=== PATIENT | male | born 1955 | race Caucasian/White ===

== ENCOUNTER → 2017-03-02 | Outpatient (CLI) | payer OTHER ==
[~2017-03-02] MED LIST: CALC-323 PO; CEPH500C PO; HYDR-5688 PO; LISI10TA PO; MULT-506 PO; OMEG10007 PO; PROM1SUP17 PO; PSYL55.43 PO
[2017-03-02 17:44] LABS: ALT/SGPT 26 U/L (12-78); AST/SGOT 21 U/L (15-37); BLOOD UREA NITROGEN 10 mg/dl (7-18); BUN/CREATININE RATIO 10.3 (10-20); CALCIUM 8.8 mg/dl (8.5-10.1); CARBON DIOXIDE 30 mmol/L (21-32); CHLORIDE 106 mmol/L (98-107); CHOLESTEROL 198 mg/dl (0-200); GLUCOSE 86 mg/dl (70-99); POTASSIUM 4.2 mmol/L (3.5-5.1); SODIUM 142 mmol/L (136-145)
[2017-03-02 17:48] LABS: ALB/GLOB RATIO 1.4 (0.9-2); ALKALINE PHOSPHATASE 59 U/L (45-117); HDL CHOLESTEROL 49 mg/dl; LDL CHOLESTEROL CALCULATED 125 mg/dl; TRIGLYCERIDES 122 mg/dl (0-150); VERY LOW DENSITY LIPOPROT CALC 24 mg/dl
== END | disposition home or self-care (01) ==
LOC: C.LABBFT 11:10
PROVIDERS: ATTEND Internal Medicine
DX: N40.0 Benign prostatic hyperplasia without lower urinary tract symptoms (principal)

== ENCOUNTER 2017-03-14 19:21 | Inpatient (IN) | payer OTHER ==
[~2017-03-14] VITALS: Ht 170.2 cm; Wt 72.8 kg
[~2017-03-14 19:21] MED LIST changes: -CALC-323 PO; -CEPH500C PO; -HYDR-5688 PO; -PROM1SUP17 PO
[2017-03-14] MEDS ORDERED: NURSING VERBAL MED ORDER ONE ×2 (19:30→22:30)
[2017-03-14] MEDS ORDERED: D5W AND 1/2NSS 1,000 ML IV SCH (19:38)
[2017-03-14] MEDS ORDERED: KETOROLAC TROMETHAMINE 30 MG/ML VIAL IV. PRN (19:45)
[2017-03-14] MEDS ORDERED: ACETAMINOPHEN/CODEINE 300/30MG TAB PO PRN (19:45)
[2017-03-14] MEDS ORDERED: ONDANSETRON INJ 2 MG/ML 2 ML VIAL IV PRN (19:45)
[2017-03-14] MEDS ORDERED: OXYCODONE/ACETAMINOPHEN 5-325 TAB PO PRN (19:45)
[2017-03-14] MEDS ORDERED: HYDROmorphone INJ 1 MG/ML SYR IV PRN (19:45)
[2017-03-14] MEDS: D5W AND 1/2NSS 1,000 ML IV SCH (19:52)
[2017-03-14] MEDS ORDERED: KETOROLAC TROMETHAMINE 30 MG/ML VIAL ONE (20:05)
--- NOTE | 2017-03-14 20:05 | DIAGNOSTIC IMAGING REPORT ---
RIGHT ELBOW 2 VIEWS CLINICAL HISTORY: Right elbow injury. COMPARISON: None FINDINGS: Fine detail is diminished due to overlying material. There is a displaced comminuted olecranon fracture with intra-articular extension. Fracture is displaced 1.3 cm. Soft tissue gas is suspected. This suggests an open fracture. IMPRESSION: Comminuted, moderately displaced olecranon fracture with intra-articular extension. Soft tissue gas raises the possibility of an open fracture. Electronically signed by: James Oliveira M.D. 03/14/2017 8:04 PM Dictated Date/Time: 03/14/2017 8:01 PM
[2017-03-14] MEDS ORDERED: CALC-323 PO (20:08)
--- NOTE | 2017-03-14 20:33 | HISTORY & PHYSICAL EXAMINATION ---
DATE OF ADMISSION: 03/14/2017 PREOPERATIVE HISTORY AND PHYSICAL CHIEF COMPLAINT: Right elbow pain. HISTORY OF PRESENT ILLNESS: Robert is a delightful gentleman. He is 61 years of age, fell on a ladder at his home environment earlier this afternoon, early evening, suffered acute injury to his right elbow. He was transported to the [facility] area where he was evaluated, treated and splinted. I was called from the [facility], they were stating that they did not have an orthopedic surgeon that could handle the case or did not have the implants. They wondered if I would accept the patient in transfer and I was glad to be able to accommodate the patient's needs. The ER physician did say he has a small laceration over left elbow. I looked at this, it is small and I think it is punctate, it might be a little more of an abrasion but there is some breakage of skin. PAST MEDICAL HISTORY: Hyperlipidemia, hypertension. PAST SURGICAL HISTORY: Tonsils. FAMILY HISTORY: Hypertension. SOCIAL HISTORY: Nonsmoker, non-alcohol user. He is employed. He is . MEDICATIONS: Include lisinopril, fish oil, and multivitamin. He takes pain pills every now and then for pain. ALLERGIES: None known to medication. REVIEW OF SYSTEMS: He denies any head trauma, no blurred vision, double vision, tinnitus, vertigo. Denies any chest trauma, shortness of breath, chest pain, no nausea, vomiting. No urgency, frequency, dysuria. He admits to only musculoskeletal complaint of his right elbow and right groin. OBJECTIVE: GENERAL: He is alert, oriented, pleasant gentleman. VITAL SIGNS: Blood pressure 120/80, pulse of 80, respiration rate 16, afebrile. HEENT: Normal. Pupils react to light and no head trauma, no eye injury. Pharynx midline. NECK: Supple. CARDIAC: Normal S1, S2, no S3. LUNGS: Clear to auscultation. No rales, rhonchi or wheezing. ABDOMEN: Soft, nontender. Does have some right inguinal pain near the adductor muscle on the right side. EXTREMITIES: His right upper extremity was bandaged and supported, I took this down to evaluate his wound. IMAGING DATA: X-rays obtained demonstrating a slightly comminuted transverse fracture proximal right olecranon. ASSESSMENT: Right olecranon fracture, possible grade 1 open. DISPOSITION: We cleaned up his wound here today with some saline and some peroxide, we redressed his wound. We are going to make patient n.p.o. after midnight. We will get him repaired tomorrow. I explained to him that he will be an add-on case and hopefully get to him around 2:00 or 3:00 in the afternoon of Tuesday and then will have him discharged on Tuesday. He is alert, oriented and we answered all questions. He is prepared for surgical intervention. NADINE
[2017-03-14 20:40] VITALS: Ht 170.2 cm; Wt 72.8 kg
[2017-03-14 21:15] VITALS: BP 113/62; PULSE 68; TEMP 36.6; O2SAT 94
[2017-03-14 21:35] LABS: HEMATOCRIT 42.1 % (42-52); MEAN CELL VOLUME 82.4 fL (80-100); MEAN CORPUSCULAR HEMOGLOBIN 28.4 pg (25-34); MEAN CORPUSCULAR HGB CONC 34.4 g/dl (32-36); PLATELET COUNT 160 K/uL (130-400); RED BLOOD COUNT 5.11 M/uL (4.7-6.1); WHITE BLOOD COUNT 13.49 K/uL (4.8-10.8)
[2017-03-14 21:52] LABS: CREATININE 0.93 mg/dl (0.60-1.40)
[2017-03-14] MEDS ORDERED: CEFAZOLIN IV 1,000 MG in DEXTROSE 5% 50ML 50 ML IV STA (22:31)
[2017-03-14 23:40] VITALS: BP 111/64; PULSE 72; TEMP 36.8; O2SAT 94
[2017-03-15] VITALS (8 sets, daily range): BP systolic 123–143; BP diastolic 77–85; PULSE 65–83; TEMP 36.5–37.4; O2SAT 92–95
[2017-03-15] MEDS: CEFAZOLIN IV 1,000 MG in DEXTROSE 5% 50ML 50 ML IV SCH ×3 (06:18→21:24)
[2017-03-15] MEDS: MULTIVITAMIN TAB PO SCH (08:28)
[2017-03-15] MEDS: D5W AND 1/2NSS 1,000 ML IV SCH (08:28)
[2017-03-15] MEDS: LISINOPRIL 10 MG TAB PO SCH (08:30)
[2017-03-15] MEDS ORDERED: MIDAZOLAM HCL 1 MG/ML 2ML VIAL ONE (14:55)
[2017-03-15] MEDS ORDERED: FENTANYL CITRATE INJ 50 MCG/1 ML 2 ML VIAL ONE (14:56)
[2017-03-15] MEDS ORDERED: BACITRACIN 50000 UNIT VIAL ONE (15:19)
[2017-03-15] MEDS ORDERED: FENTANYL CITRATE INJ 50 MCG/1 ML 2 ML VIAL IV PRN (15:45)
[2017-03-15] MEDS ORDERED: ONDANSETRON INJ 2 MG/ML 2 ML VIAL IV PRN ×2 (15:45→18:30)
[2017-03-15] MEDS ORDERED: HYDROmorphone INJ 1 MG/ML SYR IV PRN (15:45)
[2017-03-15] MEDS ORDERED: EpHEDrine SULFATE INJ 50 MG/ML AMP IV PRN (15:45)
[2017-03-15] MEDS ORDERED: ATROPINE SULFATE 0.1 MG/ML 5ML SYR IV PRN (15:45)
--- NOTE | 2017-03-15 15:48 | History & Physical Bridge Note ---
H&P Re-Evaluation Bridge Note: I have examined the patient, reviewed the History & Physical and in the interval since the performance of the History & Physical I have noted the following changes of clinical significance: No changes noted
[2017-03-15] MEDS ORDERED: NEOSTIGMINE METHYLSULFATE 5 MG/5 ML SYR ONE (16:28)
[2017-03-15] MEDS ORDERED: GLYCOPYRROLATE INJ 0.2 MG/ML VIAL ONE (16:28)
[2017-03-15] MEDS ORDERED: PROPOFOL IV EMULSION 10 MG/ML 20 ML VIAL IV ONE (16:28)
[2017-03-15] MEDS ORDERED: DEXAMETHASONE SOD INJ 4 MG/ML VIAL ONE (16:28)
[2017-03-15] MEDS ORDERED: ROCURONIUM BROMIDE 10 MG/ML 5 ML VIAL ONE (16:28)
[2017-03-15] MEDS ORDERED: LIDOCAINE HCL 2% 2 ML VIAL (20MG/ML) ONE (16:28)
[2017-03-15] MEDS ORDERED: LARYING-O-JET KIT (LTA) EXT ONE ×2 (16:28)
[2017-03-15] MEDS ORDERED: ONDANSETRON INJ 2 MG/ML 2 ML VIAL ONE (16:28)
[2017-03-15] MEDS ORDERED: HYDROmorphone INJ 2 MG/ML SYR/VIAL ONE (16:29)
--- NOTE | 2017-03-15 18:17 | DIAGNOSTIC IMAGING REPORT ---
INTRAOPERATIVE RADIOGRAPHS CLINICAL HISTORY: Open reduction and internal fixation of the right elbow. Fluoroscopy time: 8 seconds. FINDINGS: 2 spot fluoroscopic views of the right elbow are correlated with pelvic radiograph dated 03/14/2017. There has been buttress plate fixation of the proximal ulna. At least 5 cortical lag screws transfix the buttress plate, with the 2 longest screws transfixing the largest fracture fragments. There has been faith of near-anatomic alignment. Overlying soft tissue edema is noted. IMPRESSION: Intraoperative images from open reduction and internal fixation of the right elbow as above. See operative report for detailed findings. Electronically signed by: Rubio Urban M.D. 03/15/2017 6:16 PM Dictated Date/Time: 03/15/2017 6:15 PM
--- NOTE | 2017-03-15 18:17 | DIAGNOSTIC IMAGING REPORT ---
INTRAOPERATIVE RADIOGRAPHS CLINICAL HISTORY: Open reduction and internal fixation of the right elbow. Fluoroscopy time: 8 seconds. FINDINGS: 2 spot fluoroscopic views of the right elbow are correlated with pelvic radiograph dated 03/14/2017. There has been buttress plate fixation of the proximal ulna. At least 5 cortical lag screws transfix the buttress plate, with the 2 longest screws transfixing the largest fracture fragments. There has been nondenominational of near-anatomic alignment. Overlying soft tissue edema is noted. IMPRESSION: Intraoperative images from open reduction and internal fixation of the right elbow as above. See operative report for detailed findings. Electronically signed by: Rubio Urban M.D. 03/15/2017 6:16 PM Dictated Date/Time: 03/15/2017 6:15 PM
[2017-03-15] MEDS ORDERED: MAGNESIUM HYDROXIDE SUSP 30 ML UDC PO PRN (18:30)
--- NOTE | 2017-03-15 18:32 | [facility] Post Operative Brief Note ---
Immediate Operative Summary Operative Date March 15, 2017. Pre-Operative Diagnosis Right olecranon fracture, possible grade 1 open Post-Operative Diagnosis Right olecranon fracture, possible grade 1 open Procedure(s) Performed Right Open Reduction Internal Fixation Elbow Surgeon Dr. Fountain Biostatistics Professor Surgeon(s) Mark Cedeno PA-C Estimated Blood Loss 30ml Findings comminuted elbow fracture Specimens None per surgeon Complication(s) None Disposition Recovery Room / PACU
--- NOTE | 2017-03-15 18:55 | Anesthesiology Progress Note ---
Anesthesia Post Op Note Date & Time March 15, 2017 at 18:56 Vital Signs Pain Intensity: 1.0 Vital Signs Past 12 Hours Date Time Temp Pulse Resp B/P Pulse Ox O2 Delivery O2 Flow Rate FiO2 03/15/17 15:37 37.2 73 18 126/84 94 Room Air 03/15/17 15:11 37.4 65 18 124/82 95 Room Air 03/15/17 07:55 Room Air 03/15/17 07:54 94 Room Air 03/15/17 07:51 37.0 70 14 128/78 94 Room Air Notes Mental Status: alert / awake / arousable, participated in evaluation Pt Amnestic to Procedure: Yes Nausea / Vomiting: adequately controlled Pain: adequately controlled Airway Patency, RR, SpO2: stable & adequate BP & HR: stable & adequate Hydration State: stable & adequate Anesthetic Complications: no major complications apparent
[2017-03-15] MEDS: SODIUM CHLORIDE 0.9% 1000ML 1,000 ML IV SCH (20:20)
[2017-03-15] MEDS: DOCUSATE SODIUM 100 MG CAP PO SCH (21:24)
--- NOTE | 2017-03-15 23:01 | Medical Consult ---
Consultation Date of Consultation: March 15, 2017. Attending Physician: Rhett Fountain DO Reason for Consultation: medical mx History of Present Illness This is a 61 yo m POD0 s/p right olecranon fracture repair via ORIF. We were consulted for medical mx. The patient had fallen from a tree onto his right side on 03/14/17. he was seen in [facility] and an olecranon fracture was noted and decision was made to transfer him to this hospital for further mx. An ORIF was done today and patient states that he is feeling "a bit groggy" post operatively but otherwise well. He notes he only takes medications to manage his blood pressure which has been well controlled on his current regimen. he has no history of GA/ stroke and is a non smoker. His father had a stroke at an older age. Past Medical/Surgical History s/p ORIF HTN Family History FH: hypertension Social History Smoking Status: Never Smoker Smokeless Tobacco Use: No Alcohol Use: none Drug Use: none Marital Status: Occupation Status: employed Allergies Coded Allergies: No Known Allergies (Unverified , 06/18/16) Current Inpatient Medications Current Inpatient Medications Medications (Trade) Dose Ordered Sig/Dimas Route Start Time Stop Time Status Last Admin Dose Admin Acetaminophen/ Codeine Phosphate (Tylenol w/ Codeine #3 Tab) `1-2 TABS FOR PAIN `1 TAB... Q4 PRN PO 03/14/17 19:45 04/13/17 19:44 Diphenhydramine HCl (Benadryl Cap) 25 mg Q8 PRN PO 03/14/17 19:45 04/13/17 19:44 Ondansetron HCl (Zofran Inj) 4 mg Q6H PRN IV 03/14/17 19:45 04/13/17 19:44 03/15/17 22:38 4 MG Hydromorphone HCl (Dilaudid Inj) 1 mg Q3HWA PRN IV 03/14/17 19:45 03/28/17 19:44 03/14/17 20:08 1 MG Lisinopril (Zestril Tab) 10 mg DAILY PO 03/15/17 09:00 04/14/17 08:59 Multivitamins 1 tab 1 tab DAILY PO 03/15/17 09:00 04/14/17 08:59 Cefazolin Sodium/ Dextrose (Ancef Iv/D5 50ml) 55 ml @ 100 mls/hr Q8 IV 03/15/17 06:00 03/16/17 05:59 03/15/17 21:24 100 MLS/HR Oxycodone/ Acetaminophen (Percocet 5-325mg Tab) `1-2 TABS FOR PAIN `1 TAB... Q4H PRN PO 03/15/17 18:30 03/29/17 18:29 Ketorolac Tromethamine (Toradol Inj) 30 mg Q6 PRN IV. 03/15/17 18:30 03/18/17 18:29 Docusate Sodium (coLACE CAP) 100 mg BID PO 03/15/17 21:00 04/14/17 20:59 03/15/17 21:24 100 MG Magnesium Hydroxide 30 ml 30 ml Q6H PRN PO 03/15/17 18:30 04/14/17 18:29 Sodium Chloride (Nss 1000ml) 1,000 ml @ 80 mls/hr [id number] IV 03/15/17 18:29 04/14/17 18:28 03/15/17 20:20 80 MLS/HR Calcium/Vitamin D (Caltrate Plus Tab) 1 tab DAILY PO 03/16/17 09:00 04/15/17 08:59 Review of Systems Constitutional: No fever Eyes: No worsening of vision ENT: No hearing loss Respiratory: No cough, No dyspnea at rest, No dyspnea on exertion, No shortness of breath, No sputum, No wheezing Cardiovascular: No chest pain Abdomen: + nausea, No constipation, No diarrhea, No pain, No vomiting Musculoskeletal: + problem reported (right hip pain which has been ongoing since his fall), No joint pain, No muscle pain Genitourinary - Male: No dysuria, No hematuria Neurologic: No numbness/tingling, No weakness Endocrine: No fatigue Integumentary: No rash Physical Exam Date Time Temp Pulse Resp B/P Pulse Ox O2 Delivery O2 Flow Rate FiO2 03/15/17 22:22 36.5 68 16 130/84 92 Room Air 03/15/17 20:56 36.5 67 16 123/78 93 Nasal Cannula 4.0 03/15/17 20:30 36.5 83 18 143/79 94 Nasal Cannula 4.0 03/15/17 20:00 36.6 71 16 135/85 93 Nasal Cannula 4.0 03/15/17 20:00 93 Nasal Cannula 4.0 03/15/17 20:00 93 Nasal Cannula 4.0 03/15/17 19:45 36.5 71 12 122/77 94 Nasal Cannula 4 03/15/17 19:35 74 13 123/77 95 Nasal Cannula 4 03/15/17 19:25 74 10 126/79 94 Nasal Cannula 4 03/15/17 19:15 77 14 128/77 91 Nasal Cannula 4 03/15/17 19:05 76 13 129/78 92 Nasal Cannula 4 03/15/17 18:55 87 17 129/78 91 Nasal Cannula 4 03/15/17 18:45 68 20 124/82 92 Nasal Cannula 4 03/15/17 18:35 82 13 164/80 92 Nasal Cannula 4 03/15/17 18:28 36.5 75 19 136/76 98 Mask 10 03/15/17 15:37 37.2 73 18 126/84 94 Room Air 03/15/17 15:11 37.4 65 18 124/82 95 Room Air 03/15/17 07:55 Room Air 03/15/17 07:54 94 Room Air 03/15/17 07:51 37.0 70 14 128/78 94 Room Air 03/15/17 00:20 Room Air 03/14/17 23:40 36.8 72 16 111/64 94 Room Air General Appearance: no apparent distress Head: normocephalic, atraumatic Eyes: normal inspection ENT: normal ENT inspection Neck: supple Respiratory/Chest: normal breath sounds, no respiratory distress, no accessory muscle use Cardiovascular: regular rate, rhythm, no murmur Abdomen/GI: normal bowel sounds, non tender, soft Back: normal inspection Extremities/Musculoskelatal: normal inspection, + pertinent finding (right UE is in a sling, extremities neurovascularly intact) Neurologic/Psych: alert, normal mood/affect, oriented x 3 Skin: normal color, warm/dry, no rash Lymphatic: no adenopathy Assessment & Plan This is a 61 yo m POD0 s/p ORIF of right olecranon fracture requiring post op medical management s/p ORIF for right olecranon fracture - pain mx per primary team HTN - continue lisinopril DVT Prophylaxis - SCD Additional Copies To Jeremiah Pitt M.D. Assessment and Plan Attending Addendum: I have physically seen and examined this patient, have directed their medical care, have supervised the medical residents activities, and agree with the H&P as noted above, with the following changes: NONE
[2017-03-15] MEDS: KETOROLAC TROMETHAMINE 30 MG/ML VIAL IV. PRN (23:38)
[2017-03-16 03:15] VITALS: BP 122/74; PULSE 74; TEMP 36.9; O2SAT 91
[2017-03-16] MEDS: OXYCODONE/ACETAMINOPHEN 5-325 TAB PO PRN ×2 (04:08→15:01)
[2017-03-16] MEDS ORDERED: CEFAZOLIN IV 1,000 MG in DEXTROSE 5% 50ML 50 ML IV SCH (06:00)
[2017-03-16] MEDS: SODIUM CHLORIDE 0.9% 1000ML 1,000 ML IV SCH (06:11)
[2017-03-16] MEDS: KETOROLAC TROMETHAMINE 30 MG/ML VIAL IV. PRN (06:13)
--- NOTE | 2017-03-16 06:56 | OPERATIVE REPORT ---
DATE OF OPERATION: 03/15/2017 PREOPERATIVE DIAGNOSIS: Comminuted intra articular fracture of the right olecranon. POSTOPERATIVE DIAGNOSIS: Same. PROCEDURE: Included an open reduction internal fixation, right olecranon, right proximal ulna. SURGEON: Dr. Fountain. NICKEL PLANT OPERATOR: Mark Cedeno PA-C. COMPLICATIONS: Zero. BLOOD LOSS: 30 mL DESCRIPTION OF PROCEDURE: The patient was taken to the operating room, a general intubated anesthetic provided to the patient, placed in left lateral decubitus right side up. We scrubbed him first with Betadine and prepped also with DuraPrep. We draped him all sterile. We did use a tourniquet on the right upper extremity. This was also packaged in a sterile manner. We did a posterior based skin incision dissecting the soft tissue. He had a mild to moderate abrasion about the right elbow, we avoided that. In my opinion, it was not a true open injury. It is a closed injury. We then dissected the same tissue. We exposed the fracture pretty readily. The comminution made it quite difficult. We had a piecemeal to gather the intra-articular portion of the olecranon. We did finally get the proximal piece attached to the distal fragment. There was some comminution of bone as well. This was transfixed with K-wires in appropriate positioning. We then were able to get through 3 screws proximally, 2 screws distally and had a nice stable construct at the close. We then irrigated thoroughly. We also used some bone putty devise, a product called DBM. We packed this with some DBM in the vacated areas that were quite osteoporotic. We then closed in layers subcuticular layer closed with 2-0 Vicryl suture. Staple gun used on the skin. Sterile dressings applied. The patient extubated to PACU, stable. A posterior splint applied in a sling applied as well. There was no apparent surgical complications. Sponge and needle count was correct at the close of the procedure. IMPLANTS USED: By the [employer]. I attest to the content of the Intraoperative Record and any orders documented therein. Any exceptio ns are noted below.
[2017-03-16 07:44] VITALS: BP 124/78; PULSE 84; TEMP 37.5; O2SAT 96
--- NOTE | 2017-03-16 08:04 | Discharge Instructions ---
Discharge Instructions Date of Service March 16, 2017. Admission Reason for Admission: Elbow Fracture, Right Discharge Discharge Diagnosis / Problem: same Discharge Goals Goal(s): Improve function Activity Recommendations Activity Limitations: as noted below Lifting Limitations: none Exercise/Sports Limitations: until after follow-up appointment May Resume Sexual Activity: after follow-up appointment Driving or Machine Use: home , rest, recover. Maintain dressing, splint, sling. Medication as directed . Current Hospital Diet Patient's current hospital diet: Regular Diet Discharge Diet Recommended Diet: Regular Diet Fluid Restriction: None Procedures Procedures Performed: Right Open Reduction Internal Fixation Elbow Pending Studies Studies pending at discharge: no Laboratory Results Lipid Panel Test 03/02/17 13:28 Range/Units Triglycerides Level 122 0-150 mg/dl Cholesterol Level 198 0-200 mg/dl HDL Cholesterol 49 mg/dl Cholesterol/HDL Ratio 4.0 LDL Cholesterol, Calculated 125 mg/dl Medical Emergencies . Who to Call and When: Medical Emergencies: If at any time you feel your situation is an emergency, please call 911 immediately. . Non-Emergent Contact Non-Emergency issues call your: Surgeon Call Non-Emergent contact if: your pain is concerning you . "Provider Documentation" section prepared by Rhett Fountain. . VTE Core Measure Inpt VTE Proph given/why not?: Treatment not indicated
[2017-03-16] MEDS ORDERED: PROM1SUP17 PO (08:12)
[2017-03-16] MEDS ORDERED: HYDR-5688 PO (08:12)
[2017-03-16] MEDS ORDERED: CEPH500C PO (08:12)
[2017-03-16] MEDS: DOCUSATE SODIUM 100 MG CAP PO SCH (08:19)
[2017-03-16] MEDS: MULTIVITAMIN TAB PO SCH (08:19)
[2017-03-16] MEDS: LISINOPRIL 10 MG TAB PO SCH (08:20)
--- NOTE | 2017-03-16 08:22 | DISCHARGE SUMMARY ---
DATE OF DISCHARGE: 03/16/17 SUBJECTIVE: Moderate complaints of pain but alert, oriented, no chest pain, shortness of breath. No confusion. OBJECTIVE: Vital signs stable. Slight elevation of temperature. Moves all 4 extremities. Alert, oriented. Blood count pending. ASSESSMENT: Open reduction internal fixation comminuted fracture, right proximal ulna. DISPOSITION: Will get him discharged home later today, approximately 2:00. Instructions, precautions provided to the patient. He has an appointment 11:30 with [facility] on this Tuesday, so it is in 48 hours. He is to keep his dressing intact. Splint intact. Use a sling. Prescription on his chart. Instructions, precautions provided to the patient.
[2017-03-16 08:28] LABS: HEMATOCRIT 36.1 % (42-52); MEAN CELL VOLUME 83.4 fL (80-100); MEAN CORPUSCULAR HEMOGLOBIN 28.6 pg (25-34); MEAN CORPUSCULAR HGB CONC 34.3 g/dl (32-36); MEAN PLATELET VOLUME 10.2 fL (7.4-10.4); PLATELET COUNT 142 K/uL (130-400); RED BLOOD COUNT 4.33 M/uL (4.7-6.1); WHITE BLOOD COUNT 11.91 K/uL (4.8-10.8)
[2017-03-16 08:36] VITALS: O2SAT 96
[2017-03-16] MEDS ORDERED: CALCIUM 600MG + VIT D 400 IU TAB PO SCH (09:00)
[2017-03-16 09:15] VITALS: BP 124/78; PULSE 84; TEMP 37.5; O2SAT 96
[2017-03-16 11:55] VITALS: BP 126/78; PULSE 62; TEMP 37; O2SAT 94
[2017-03-16 14:45] VITALS: BP 120/76; PULSE 73; O2SAT 95
--- NOTE | 2017-03-16 16:02 | Progress Note ---
Subjective Date of Service: March 16, 2017. Subjective Pt evaluation today including: conversation w/ patient, physical exam, review of inpatient medication list Pain: right elbow and right groin PO Intake: adequate Voiding: no voiding problems evaluated by PT, can go home d/c by ortho earlier today asked him about the right hip, he said that he had x-rays at [facility] that showed no fracture Review of Systems Musculoskeletal: + joint pain (right hip/groin and right elbow) All Other Systems: Reviewed and Negative Objective Vital Signs Date Time Temp Pulse Resp B/P Pulse Ox O2 Delivery O2 Flow Rate FiO2 03/16/17 14:45 73 95 03/16/17 11:55 37.0 62 20 126/78 94 Room Air 03/16/17 09:15 37.5 84 20 96 Room Air 03/16/17 08:36 96 Room Air 03/16/17 07:44 37.5 84 20 124/78 96 Room Air 03/16/17 07:05 Room Air 03/16/17 03:15 36.9 74 16 122/74 91 Room Air 03/15/17 23:30 Room Air 03/15/17 23:00 36.5 77 18 125/77 92 Room Air 03/15/17 22:22 36.5 68 16 130/84 92 Room Air 03/15/17 20:56 36.5 67 16 123/78 93 Nasal Cannula 4.0 03/15/17 20:30 36.5 83 18 143/79 94 Nasal Cannula 4.0 03/15/17 20:00 36.6 71 16 135/85 93 Nasal Cannula 4.0 03/15/17 20:00 93 Nasal Cannula 4.0 03/15/17 20:00 93 Nasal Cannula 4.0 03/15/17 19:45 36.5 71 12 122/77 94 Nasal Cannula 4 03/15/17 19:35 74 13 123/77 95 Nasal Cannula 4 03/15/17 19:25 74 10 126/79 94 Nasal Cannula 4 03/15/17 19:15 77 14 128/77 91 Nasal Cannula 4 03/15/17 19:05 76 13 129/78 92 Nasal Cannula 4 03/15/17 18:55 87 17 129/78 91 Nasal Cannula 4 03/15/17 18:45 68 20 124/82 92 Nasal Cannula 4 03/15/17 18:35 82 13 164/80 92 Nasal Cannula 4 03/15/17 18:28 36.5 75 19 136/76 98 Mask 10 Physical Exam General Appearance: WD/WN, no apparent distress Neck: supple, no adenopathy, no JVD, trachea midline Respiratory/Chest: chest non-tender, lungs clear, normal breath sounds, no respiratory distress, no accessory muscle use Cardiovascular: regular rate, rhythm, no edema, no gallop, no JVD, no murmur Abdomen: normal bowel sounds, non tender, soft, no organomegaly Extremities: no pedal edema, no calf tenderness, normal capillary refill, pelvis stable, + pertinent finding (right elbow in sling/splint) Neurologic/Psychiatric: track greaser II-XII nml as tested, no motor/sensory deficits, alert, normal mood/affect, oriented x 3 Skin: normal color, warm/dry, no rash Lymphatic: no adenopathy Laboratory Results Last 24 Hours Test 03/16/17 07:58 White Blood Count 11.91 K/uL Red Blood Count 4.33 M/uL Hemoglobin 12.4 g/dL Hematocrit 36.1 % Mean Corpuscular Volume 83.4 fL Mean Corpuscular Hemoglobin 28.6 pg Mean Corpuscular Hemoglobin Concent 34.3 g/dl RDW Standard Deviation 40.4 fL RDW Coefficient of Variation 13.2 % Platelet Count 142 K/uL Mean Platelet Volume 10.2 fL Assessment and Plan This is a 61 yo m POD 1 s/p ORIF of right olecranon fracture requiring post op medical management s/p ORIF for right olecranon fracture, POD #1 - d/c to home per ortho, will follow up with Dr. Fountain in 2 days in the office HTN - continue lisinopril Right groin pain - per patient, no fractures on x-rays at [facility] evaluated by PT, recommended using cane at home, patient already has a cane DVT Prophylaxis - SCD
== END 2017-03-16 15:40 | disposition home or self-care (01) | DRG 512 ==
LOC: ENRESERVDT → ENRESERVTM → EDBD 19:21 → C.EDC 19:25 → C.MSN 19:44
PROVIDERS: ADMIT Orthopaedic Surgery Orthopaedic Surgery of the Spine; ATTEND Orthopaedic Surgery Orthopaedic Surgery of the Spine
PROC: 0PSK04Z Reposition Right Ulna with Internal Fixation Device, Open Approach (ICD-10-PCS; principal; 2017-03-15 10:15)
DX: S52.031B Displaced fracture of olecranon process with intraarticular extension of right ulna, initial encounter for open fracture type I or II (principal); R10.31 Right lower quadrant pain; I10 Essential (primary) hypertension; E78.5 Hyperlipidemia, unspecified; Z79.899 Other long term (current) drug therapy; Z82.49 Family history of ischemic heart disease and other diseases of the circulatory system; W11.XXXA Fall on and from ladder, initial encounter; Y92.009 Unspecified place in unspecified non-institutional (private) residence as the place of occurrence of the external cause; Y99.8 Other external cause status

== ENCOUNTER → 2017-09-20 | Outpatient (CLI) | payer OTHER ==
[~2017-09-20] MED LIST changes: +CALC-323 PO; +PROM1SUP17 PO; -PSYL55.43 PO
--- NOTE | 2017-09-20 08:17 | DIAGNOSTIC IMAGING REPORT ---
GI SERIES W/AIR ROUTINE CLINICAL HISTORY: 61 years-old Male with R13.10 [id number]. Acute dysphasia with reflux TECHNIQUE: A standard air contrast upper GI series was performed following administration of barium and effervescent crystals. Multiple spot fluoroscopic images were obtained and provided for review. COMPARISON STUDY: None available FLUOROSCOPY TIME: 2.2 minutes. FINDINGS: The patient swallowed barium without difficulty. No aspiration was definitively visualized. The esophagus distended normally with barium and effervescent crystals. No strictures, mucosal ulcerations, or intraluminal mass lesions were identified involving the esophagus. There was no significant gastroesophageal reflux. Barium was seen to flow freely through the gastroesophageal junction. No active reflux was demonstrated with Valsalva maneuver. Evaluation of the stomach demonstrates no gastric mucosal irregularity or filling defect. There is a polypoid lobular filling defect noted involving the second portion of the duodenum nicely seen on image 10 of series 22 and image 17 of 22 demonstrating smooth margins. No associated wall thickening, obstruction or duodenal dilation. No additional lesions identified. IMPRESSION: 1. Polypoid lobular filling defect involving the second portion of the duodenum is nonspecific. Differential considerations would include benign lesions such as a lipoma, leiomyoma, adenoma or hamartoma with malignant etiology also considered. Correlation with endoscopy recommended. 2. Study is otherwise unremarkable. The above report was generated using voice recognition software. It may contain grammatical, syntax or spelling errors. Electronically signed by: Lennox Marie M.D. 09/20/2017 8:16 AM Dictated Date/Time: 09/20/2017 8:10 AM
== END | disposition home or self-care (01) ==
LOC: C.RAD 07:31
PROVIDERS: ATTEND Internal Medicine
DX: R13.10 Dysphagia, unspecified (principal)